=== PATIENT | male | born 1960 | race Caucasian/White ===

== ENCOUNTER 2016-12-31 10:04 | Inpatient (IN) | payer BC, OTHER ==
[2016-12-05 11:39] VITALS: BMI 33.0
--- NOTE | 2016-12-05 12:13 | PAT Medication Instructions ---
Service Date Dec 05, 2016. Current Home Medication List Amlodipine (Norvasc), 5 MG PO QAM Atorvastatin (Lipitor), 40 MG PO QAM Fish Oil (Hereford-3), 1 CAP PO QAM Emxdrcoefcx-Vzcqmqelcpu-Qpf C- (Glucosamine Chondroitin), 1 TAB PO QAM Multivitamin (Multivitamin), 1 TAB PO QAM Naproxen (Aleve), 440 MG PO prn Medication Instructions For Your Scheduled Surgery - Hold the following medications 2 weeks prior to surgery: Fish Oil (Hereford-3), 1 CAP PO QAM Lxfequfxhti-Arxqdetylmp-Tpf C- (Glucosamine Chondroitin), 1 TAB PO QAM - Hold the following medications the morning of surgery: Multivitamin (Multivitamin), 1 TAB PO QAM Naproxen (Aleve), 440 MG PO prn (otherwise okay per surgeon) - Take the following medications the morning of surgery with a sip of water OTHERWISE NOTHING TO EAT OR DRINK AFTER MIDNIGHT: Amlodipine (Norvasc), 5 MG PO QAM Atorvastatin (Lipitor), 40 MG PO QAM If you have any questions please call us at [phone] (Mandie Boothe PA-C ) or [phone] or [phone]
[2016-12-05 12:52] LABS: BASO % 0.4 %; BASO ABS # 0.03 K/uL (0-0.2); COMPLETE YES; EOS % 2.6 %; HEMATOCRIT 42.7 % (42-52); IG% 0.1 %; LYMPH ABS # 2.43 K/uL (1.2-3.4); MEAN CELL VOLUME 90.5 fL (80-100); MEAN CORPUSCULAR HEMOGLOBIN 30.5 pg (25-34); MEAN CORPUSCULAR HGB CONC 33.7 g/dl (32-36); MEAN PLATELET VOLUME 10.7 fL (7.4-10.4); MONO % 6.2 %; NEUT % 60.7 %; PLATELET COUNT 269 K/uL (130-400); RED BLOOD COUNT 4.72 M/uL (4.7-6.1)
[2016-12-05 12:57] LABS: URINE APPEARANCE CLEAR (CLEAR); URINE BILIRUBIN NEG (NEG); URINE COLOR YELLOW; URINE NITRITE NEG (NEG); UROBILINOGEN NEG (NEG); ZZUR CULT IF INDIC CLEAN CATCH NO
[2016-12-05 13:05] LABS: INR 0.9 (0.9-1.1); PROTHROMBIN TIME (PATIENT) 9.9 SECONDS (9.0-12.0)
[2016-12-05 13:06] LABS: MANUAL MICROSCOPIC REQUIRED? NO; REVIEW REQ? NO
--- NOTE | 2016-12-05 13:24 | DIAGNOSTIC IMAGING REPORT ---
CHEST PREADMISSION(PA/LAT) CLINICAL HISTORY: Preoperative evaluation. COMPARISON STUDY: No previous studies for comparison. FINDINGS: Lung volumes are normal. No pneumothorax or pleural effusions present. There is no consolidation. There is mild enlargement of the cardiac silhouette without evidence of pulmonary edema. IMPRESSION: 1. No acute cardiopulmonary findings. 2. Mild cardiomegaly. Electronically signed by: Patrick Armstrong M.D. 12/05/2016 1:22 PM Dictated Date/Time: 12/05/2016 1:21 PM
[2016-12-05 13:39] LABS: BUN/CREATININE RATIO 16.2 (10-20); CALCIUM 9.3 mg/dl (8.5-10.1); CREATININE 0.73 mg/dl (0.60-1.40)
--- NOTE | 2016-12-30 10:31 | HISTORY & PHYSICAL EXAMINATION ---
DATE OF ADMISSION: 12/31/2016 CHIEF COMPLAINT: Left hip pain. HISTORY OF PRESENT ILLNESS: Eladio is a 56-year-old male with a multiple-year history of pain in his left hip. The patient rates his pain a 10/10. He has pain with his daily activities. He has limited standing and walking tolerance. Pain is worse with weightbearing. The patient has had injections, anti-inflammatories, and home exercise program without relief. He has failed conservative treatment and is scheduled for left hip replacement. PAST MEDICAL HISTORY: Hypertension, hypercholesterolemia. He denies heart disease, diabetes or DVT. PAST SURGICAL HISTORY: Negative. SOCIAL HISTORY: The patient denies alcohol use. He smokes 3/4 of a pack of cigarettes per day. He lives in a 2-story home. He is and works in the [employer] business. FAMILY HISTORY: Negative for DVT. MEDICATIONS: Amlodipine 5 mg daily, tramadol 50 mg, atorvastatin 40 mg, fish oil 1200 mg, glucosamine chondroitin 1500 mg, Centrum Silver and Aleve p.r.n. ALLERGIES: None. REVIEW OF SYSTEMS: See HPI. Ten other systems reviewed, all negative. PHYSICAL EXAMINATION: VITAL SIGNS: Height 5-foot 10, weight 230 pounds, BMI is 33. GENERAL: This is a well-developed, well-nourished male who is alert and oriented x3. Mood and affect are appropriate. HEENT: Normocephalic, atraumatic. Mucous membranes are moist and intact. NECK: Supple without lymphadenopathy. HEART: Regular rate and rhythm without murmurs, rubs or gallops. LUNGS: Clear to auscultation without wheezes or rhonchi. ABDOMEN: Soft and nontender. Bowel sounds are equal and active. EXTREMITIES: No ecchymosis, redness or warmth. Thigh and calf are soft and nontender. He walks with an antalgic gait. Log roll of the hip reproduces pain in the groin. He is neurovascularly intact. Range of motion is decreased. X-RAY EXAMINATION: AP and lateral views show joint space narrowing and osteophyte formation of the left hip. PLAN: The patient will be admitted for a direct anterior left total hip arthroplasty. We will plan on aspirin for DVT prophylaxis. The patient's PCP is Dr. Sullivan in [place], [place].
[2016-12-31] VITALS (7 sets, daily range): BP systolic 94–138; BP diastolic 61–93; PULSE 76–97; TEMP 36.5–36.9; O2SAT 97–99; Ht 177.8 cm; Wt 105.6 kg
[~2016-12-31] VITALS: Ht 177.8 cm; Wt 105.6 kg
[~2016-12-31 10:04] MED LIST: ACETAMINOPHEN 500 MG TAB PO SCH; AMLO-110 PO; ATOR-24 PO; BUPIVACAINE 0.5 % 5 MG/1 ML PF 10ML VIAL ONE; CEFAZOLIN 2000 MG/60 ML D5W 60 ML IV SCH; CeleBREX 200 MG CAP PO SCH; DEXAMETHASONE 4 MG TAB PO SCH; FAMOTIDINE 20 MG TAB PO SCH; GABAPENTIN 300 MG CAP PO SCH; GLUC1CAP35 PO; LACTATED RINGER'S 1000ML IV SCH; METOCLOPRAMIDE HCL 10 MG TAB PO SCH; MULT-506 PO; NAPR1TAB9 PO; OMEG10007 PO; OXYCODONE HCL 10 MG TABCR (OXYCONTIN) PO SCH; POLYMYXIN B SULFATE 100,000 UNITS in NSS 100ML IR SCH; ROPIVACAINE 5MG/ML 30 ML 150 MG, BUPIVACAINE/EPINEPHR 0.5% MPF 30 ML, KETOROLAC TROMETH... INFIL SCH; VANCOMYCIN INJ 400 MG in NSS 100ML IR SCH
[2016-12-31] MEDS ORDERED: FENTANYL CITRATE INJ 50 MCG/1 ML 2 ML VIAL ONE (11:06)
[2016-12-31] MEDS ORDERED: PROPOFOL IV EMULSION 10 MG/ML 20 ML VIAL IV ONE ×2 (11:06→15:06)
[2016-12-31] MEDS ORDERED: LIDOCAINE HCL 2% 2 ML VIAL (20MG/ML) ONE (11:06)
[2016-12-31] MEDS ORDERED: MIDAZOLAM HCL 1 MG/ML 2ML VIAL ONE ×2 (11:06)
--- NOTE | 2016-12-31 12:05 | History & Physical Bridge Note ---
H&P Re-Evaluation Bridge Note: I have examined the patient, reviewed the History & Physical and in the interval since the performance of the History & Physical I have noted the following changes of clinical significance: No changes noted
[2016-12-31] MEDS: TRANEXAMIC ACID INJ 1,000 MG in SODIUM CHLORIDE 0.9% 100ML 100 ML IV SCH ×2 (12:20→17:29)
[2016-12-31] MEDS ORDERED: BACITRACIN 50000 UNIT VIAL ONE (13:12)
[2016-12-31] MEDS ORDERED: POVIDONE-IODINE OP SOLN 30 ML BTL ONE (13:12)
[2016-12-31] MEDS ORDERED: ORTHO JOINT ANESTHETIC ONE (13:12)
[2016-12-31] MEDS ORDERED: ATROPINE SULFATE 0.1 MG/ML 5ML SYR IV PRN (13:30)
[2016-12-31] MEDS ORDERED: ONDANSETRON INJ 2 MG/ML 2 ML VIAL IV PRN ×2 (13:30→15:00)
[2016-12-31] MEDS ORDERED: EpHEDrine SULFATE INJ 50 MG/ML AMP IV PRN (13:30)
[2016-12-31] MEDS ORDERED: KETOROLAC TROMETHAMINE 30 MG/ML VIAL IV. PRN (13:30)
[2016-12-31] MEDS ORDERED: HYDROmorphone INJ 2 MG/ML SYR/VIAL IV PRN (13:30)
[2016-12-31] MEDS ORDERED: PHENYLEPHRINE 100MCG/ML 5ML SYR IV PRN (13:30)
[2016-12-31] MEDS ORDERED: METOPROLOL TARTRATE 1 MG/ML VIAL ONE (14:38)
--- NOTE | 2016-12-31 14:58 | [facility] Post Operative Brief Note ---
Immediate Operative Summary Operative Date Dec 31, 2016. Pre-Operative Diagnosis Left Hip Degenerative Joint Disease Post-Operative Diagnosis Left Hip Degenerative Joint Disease Procedure(s) Performed Left Total Hip Arthroplasty, Direct Anterior Approach Surgeon Dr. Tramaine Ramos Tester Wafer Substrate Surgeon(s) Seferino Dennis PA-C Estimated Blood Loss 250 mL Findings DJD OBESE Specimens A: Left Femoral Head Complication(s) None Disposition Recovery Room / PACU
[2016-12-31] MEDS ORDERED: TRAMADOL HCL 50 MG TAB PO PRN (15:00)
[2016-12-31] MEDS ORDERED: MoRPHine SULFATE 2 MG/ML CARP IV PRN (15:00)
[2016-12-31] MEDS ORDERED: ALUMINUM/MAGNESIUM/SIMETH (MAALOX MAX) 30 ML UDC PO PRN (15:00)
[2016-12-31] MEDS ORDERED: MAGNESIUM HYDROXIDE SUSP 30 ML UDC PO PRN (15:00)
[2016-12-31] MEDS ORDERED: ZOLPIDEM TARTRATE 5 MG TAB PO PRN (15:00)
[2016-12-31] MEDS ORDERED: SOD PHOSPHATE/SOD BIPHOSPHATE ENEMA 132 ML BTL PR PRN (15:00)
[2016-12-31] MEDS ORDERED: DiphenhydrAMINE HCL 50 MG/ML VIAL IV PRN (15:00)
[2016-12-31] MEDS ORDERED: METOCLOPRAMIDE HCL INJ 5 MG/ML 2 ML VIAL IV PRN (15:00)
[2016-12-31] MEDS ORDERED: BISACODYL 10 MG SUPP PR PRN (15:00)
--- NOTE | 2016-12-31 15:05 | DIAGNOSTIC IMAGING REPORT ---
INTRAOPERATIVE FLUOROSCOPIC IMAGES OF THE LEFT HIP CLINICAL HISTORY: Total left hip arthroplasty COMPARISON STUDY: None FLUOROSCOPY TIME: 10 seconds. FINDINGS: A single AP fluoroscopic image demonstrates anatomic alignment of the left hip arthroplasty. No fracture is identified. The superior most aspect of the acetabular cup was not imaged on this exam. No unexpected radiopaque foreign body is identified. IMPRESSION: Expected findings during left hip arthroplasty. The superior most aspect of the acetabular cup was not imaged on this exam. Electronically signed by: Patrick Armstrong M.D. 12/31/2016 3:04 PM Dictated Date/Time: 12/31/2016 3:03 PM
--- NOTE | 2016-12-31 15:43 | Anesthesiology Progress Note ---
Anesthesia Post Op Note Date & Time Dec 31, 2016 at 15:42 Vital Signs Pain Intensity: 0 Vital Signs Past 12 Hours Date Time Temp Pulse Resp B/P Pulse Ox O2 Delivery O2 Flow Rate FiO2 12/31/16 15:30 36.1 90 16 147/85 98 Nasal Cannula 2 12/31/16 10:28 36.9 89 20 138/93 98 Room Air Notes Mental Status: alert / awake / arousable, participated in evaluation Pt Amnestic to Procedure: Yes Nausea / Vomiting: adequately controlled Pain: adequately controlled Airway Patency, RR, SpO2: stable & adequate BP & HR: stable & adequate Hydration State: stable & adequate Neuraxial Anesthesia: was administered, sensory block is resolving Anesthetic Complications: no major complications apparent
--- NOTE | 2016-12-31 15:52 | DIAGNOSTIC IMAGING REPORT ---
LEFT PELVIS/UNILATERAL HIP 1 VIEW CLINICAL HISTORY: Left hip arthroplasty. COMPARISON: Intraoperative fluoroscopic images performed earlier today. FINDINGS: Alignment of the total left hip arthroplasty is anatomic. There is no fracture or unexpected radiopaque foreign body. Acetabular screw is in place. There is a surgical drain. IMPRESSION: Expected findings following total left hip arthroplasty. Electronically signed by: Patrick Armstrong M.D. 12/31/2016 3:51 PM Dictated Date/Time: 12/31/2016 3:50 PM
[2016-12-31] MEDS: D5W AND 1/2NSS + 20MEQ KCL 1,000 ML IV SCH (18:09)
[2016-12-31] MEDS: OXYCODONE HCL IR 5 MG TAB (IMMEDIATE RELEASE) PO PRN ×2 (19:25→23:26)
[2016-12-31] MEDS ORDERED: INFLUENZA ADMINISTRATION CHARGE ONE (20:15)
[2016-12-31] MEDS ORDERED: INFLUENZA VIRUS QUAD VACCINE 0.5 ML SYR IM. ONE (20:15)
[2016-12-31] MEDS ORDERED: SENNA 8.6 MG TAB PO SCH (21:00)
[2016-12-31] MEDS ORDERED: TRANEXAMIC ACID INJ 1,000 MG in SODIUM CHLORIDE 0.9% 100ML 100 ML IV ONE (22:00)
[2016-12-31] MEDS: CEFAZOLIN IV 2,000 MG in DEXTROSE 5% 50ML 50 ML IV SCH (22:05)
[2016-12-31] MEDS: ASPIRIN 81 MG ECTAB PO SCH (22:05)
[2016-12-31] MEDS: KETOROLAC TROMETHAMINE 30 MG/ML VIAL IV. SCH (22:07)
[2016-12-31] MEDS: ACETAMINOPHEN 500 MG TAB PO SCH (22:07)
--- NOTE | 2017-01-01 00:43 | OPERATIVE REPORT ---
DATE OF OPERATION: 12/31/2016 PREOPERATIVE DIAGNOSIS: Degenerative arthritis, left hip. POSTOPERATIVE DIAGNOSIS: Same. PROCEDURE: Left total hip replacement. SURGEON: Dr. Ramos. PILLOW AGENT: AUGUSTINE Parmar. ANESTHESIA: Spinal. BLOOD LOSS: 250 mL. REPLACEMENT FLUIDS: 1800 mL of crystalloid. DRAINS: Hemovacs x1. CULTURES: None. COMPLICATIONS: None. COMPONENTS USED: [employer] Polar hip system, acetabulum size 52, femur size 3 lateral offset, femoral head +436 mm. NOTE: Seferino Dennis was present and assisted throughout due to the complicated nature of this case. He helped with preparation and set up, first assisted throughout and personally closed the fascial, subcutaneous and skin layers and applied the postoperative dressing. DESCRIPTION: Following satisfactory spinal, the patient was placed supine, the left hip was placed in the traction device and the right leg in the well leg valentin. The leg was prepared with ChloraPrep and draped sterilely. Following a surgical time-out, an anterior approach in the interval between the sartorius and tensor muscles was completed, the circumflex femoral vessels were identified and ligated. An anterior capsulotomy was performed. The approach was somewhat difficult as the patient had a very heavy subcutaneous fat layer with large 5 muscles and had a modest amount of oozing and bleeding. The anterior capsulotomy performed, the arthritic femoral neck and head were trimmed and removed. The acetabular self-retraining retractor was placed. Acetabular reaming was completed under fluoroscopic guidance and a 52 shell was impacted into an anatomic position and secured with a dome screw. After local anesthetic and irrigation, the polyethylene liner was placed. Attention was turned to the femur. The femur was prepared up to the size 3. A trial reduction with the +4 head showed the best jew of leg lengths using fluoroscopic anatomic landmarks and good fit and fill of the proximal canal. The trial component was removed after dislocating the hip, the wound was irrigated, local anesthetic was placed and the final implant was then placed and the hip reduced. Again, the position was confirmed. A Betadine soak was performed. After 5 minutes, the Betadine was irrigated. The capsule closed with 1 Vicryl interrupted. A drain was placed. The fascia was closed with 1-0 Vicryl running, the subcutaneous tissues with 1 Vicryl and 2-0 Vicryl and the skin with a running subcuticular stitch of 3-0 V-Loc. Dermabond and a dry dressing were applied. The patient was returned to his bed in stable condition. I attest to the content of the Intraoperative Record and any orders documented therein. Any exceptio ns are noted below.
[2017-01-01 03:10] VITALS: BP 133/73; PULSE 89; TEMP 36.9; O2SAT 96
[2017-01-01] MEDS: D5W AND 1/2NSS + 20MEQ KCL 1,000 ML IV SCH (04:11)
[2017-01-01] MEDS: KETOROLAC TROMETHAMINE 30 MG/ML VIAL IV. SCH ×2 (04:12→08:57)
[2017-01-01] MEDS: OXYCODONE HCL IR 5 MG TAB (IMMEDIATE RELEASE) PO PRN ×2 (04:16→09:09)
[2017-01-01] MEDS: CEFAZOLIN IV 2,000 MG in DEXTROSE 5% 50ML 50 ML IV SCH (05:44)
[2017-01-01] MEDS: ACETAMINOPHEN 500 MG TAB PO SCH (05:44)
[2017-01-01 07:28] VITALS: BP 121/74; PULSE 91; TEMP 37.1; O2SAT 96
[2017-01-01 07:44] LABS: BASO % 0.1 %; BASO ABS # 0.01 K/uL (0-0.2); COMPLETE YES; HEMATOCRIT 32.4 % (42-52); IG% 0.3 %; LYMPH % 6.1 %; MEAN CELL VOLUME 89.5 fL (80-100); MEAN CORPUSCULAR HEMOGLOBIN 29.8 pg (25-34); MEAN CORPUSCULAR HGB CONC 33.3 g/dl (32-36); MEAN PLATELET VOLUME 10.8 fL (7.4-10.4); MONO % 4.9 %; NEUT % 88.6 %; PLATELET COUNT 244 K/uL (130-400); RED BLOOD COUNT 3.62 M/uL (4.7-6.1); WHITE BLOOD COUNT 17.92 K/uL (4.8-10.8)
[2017-01-01 08:14] LABS: BUN/CREATININE RATIO 15.4 (10-20); CALCIUM 8.3 mg/dl (8.5-10.1); CREATININE 0.85 mg/dl (0.60-1.40); POTASSIUM 4.1 mmol/L (3.5-5.1)
--- NOTE | 2017-01-01 08:40 | Orthopedic Progress Note ---
Orthopedic Progress Note Date of Service Jan 01, 2017. Subjective Post OP Day: 1 Reports: feeling well, Denies: SOB, calf pain, chest pain, light headedness, nausea / vomiting Objective calves soft nontender, N/V intact, hip located, dressing C/D/I, A&O x3, toes mobile, hemovac drainage (175/75CC PER SHIFT) Date Time Temp Pulse Resp B/P Pulse Ox O2 Delivery O2 Flow Rate FiO2 01/01/17 07:28 37.1 91 18 121/74 96 Room Air 01/01/17 03:10 36.9 89 16 133/73 96 Room Air 12/31/16 23:20 Room Air 12/31/16 22:57 36.7 94 16 108/61 97 Room Air 12/31/16 19:45 36.6 97 18 94/64 98 Nasal Cannula 2.0 12/31/16 18:49 87 18 132/81 99 Nasal Cannula 2.0 12/31/16 18:06 36.5 87 18 131/84 99 2.0 12/31/16 17:18 36.5 87 16 122/71 99 Nasal Cannula 3.0 12/31/16 16:45 36.5 76 16 128/84 99 Nasal Cannula 2.0 12/31/16 16:45 99 Nasal Cannula 2.0 12/31/16 16:30 79 13 101/76 97 Nasal Cannula 2 12/31/16 16:15 76 17 129/78 97 Nasal Cannula 2 12/31/16 16:00 76 20 121/69 98 Nasal Cannula 2 12/31/16 15:50 36.0 72 16 127/76 99 Nasal Cannula 2 12/31/16 15:40 83 19 132/84 99 Nasal Cannula 2 12/31/16 15:30 36.1 90 16 147/85 98 Nasal Cannula 2 12/31/16 10:28 36.9 89 20 138/93 98 Room Air Laboratory Results 24 Hours: Test 01/01/17 07:02 White Blood Count 17.92 K/uL Red Blood Count 3.62 M/uL Hemoglobin 10.8 g/dL Hematocrit 32.4 % Mean Corpuscular Volume 89.5 fL Mean Corpuscular Hemoglobin 29.8 pg Mean Corpuscular Hemoglobin Concent 33.3 g/dl Platelet Count 244 K/uL Mean Platelet Volume 10.8 fL Neutrophils (%) (Auto) 88.6 % Lymphocytes (%) (Auto) 6.1 % Monocytes (%) (Auto) 4.9 % Eosinophils (%) (Auto) 0.0 % Basophils (%) (Auto) 0.1 % Neutrophils # (Auto) 15.89 K/uL Lymphocytes # (Auto) 1.10 K/uL Monocytes # (Auto) 0.87 K/uL Eosinophils # (Auto) 0.00 K/uL Basophils # (Auto) 0.01 K/uL Assessment & Plan Assessment: POD#1 SP LEFT TIMA Inhouse Planning Pain Management: Celebrex, PO Tylenol, Oxy IR DVT Prophylaxis: TEDs, SCDs, ASA Discharge Planning Discharge Planning: home (DC HOME TODAY)
--- NOTE | 2017-01-01 08:41 | Discharge Instructions ---
Discharge Instructions Admission Reason for Admission: Left Hip Degenerative Arthritis Discharge Discharge Diagnosis / Problem: SP LEFT TIMA, DA Discharge Goals Goal(s): Decrease discomfort, Improve function, Increase independence Activity Recommendations Activity Limitations: per Instructions/Follow-up section . Instructions / Follow-Up Instructions / Follow-Up ACTIVITY RECOMMENDATIONS: SELF CARE INSTRUCTIONS AFTER TOTAL HIP REPLACEMENT : Direct Anterior Approach Until the incision and soft tissues around your hip have healed, there is a possibility that the hip prosthesis could dislocate. A. Hip flexion ( Up & Down out of chair or steps ) may be difficult. This is normal. B. Numbness in front of the thigh is also normal for a few weeks. C. Use hand rails when walking on stairs. D. Wear low heeled shoes with non-slip soles. E. Be sure that your floors are free of things that could trip you - throw rugs , electrical cords, small objects. Avoid wet and waxed floors, especially with crutches and canes. F. Try to walk several times a day with rest periods between. G. Continue with all the exercises taught to you in the hospital. Again, make walking a part of your daily routine. SPECIAL CARE INSTRUCTIONS: VERY IMPORTANT TO READ AND REVIEW A. You may still be at risk for phlebitis and blood clots. 1. Wear surgical stockings (DRAKE hose) for 2 weeks after surgery to improve circulation and reduce swelling. 2. Take Aspirin 81mg twice daily for 4 weeks or as directed by your doctor. This is your blood thinner. 3. High risk patients may be prescribed a stronger blood thinner if necessary. 4. If you are on Coumadin normally, your family doctor/electric locomotive crane operator should monitor your blood work. Expect a phone call the day of or the day after bloodwork is drawn to adjust your dosage. B. You must take antibiotics before having dental work, bladder, bowel and other surgery. Your doctor will provide you with a permanent card to carry describing precautions. C. Call [facility] if you have a fever, redness or swelling around the incision, cloudy drainage from incision, or sudden increase in pain in your hip, not relieved by your regular pain medication. D. Please call the office at if you have any concerns or questions about your operation or recovery. * YOU MAY SHOWER, NO TUB BATHS UNTIL CLEARED BY YOUR DOCTOR. - Keep an extra close eye on the top portion of your incision. Be sure to keep clean & dry. * WEAR DRAKE HOSE 20 HOURS PER DAY FOR 2 WEEKS. * YOU MAY PROGRESS FROM A WALKER, TO A CANE, TO INDEPENDENT AT YOUR OWN PACE. * MOST PATIENTS WILL HAVE HOME NURSING FOR THERAPY. IF YOU DECIDE TO DO OUTPATIENT PHYSICAL THERAPY, PLEASE SCHEDULE THIS 3 TIMES PER WEEK. * DERMABOND Prineo- This is a mesh tape dressing that is covered with glue. It should remain in place until the incision is properly healed, usually 10-14 days. This dressing is designed to naturally slough off. You may trim the excess mesh tape as it peels off. Incision may be briefly wet in a shower. Dry immediately by blotting with a clean, dry towel. Do not bath or swim until instructed by your doctor. Do not scratch, rub, or pick at the dressing. Do not apply any topical ointments or lotions until dressing is completely removed and/or instructed by your doctor. There may be a small piece of suture material at one end of your incision. Do not pull or trim this. If it is bothersome or catching on clothing, you may cover it with a band-aid. FOLLOW UP VISIT: If appointment is not already scheduled: Please call [facility] to make a follow-up appointment for 2 weeks after your surgery at . Current Hospital Diet Patient's current hospital diet: Regular Diet Discharge Diet Recommended Diet: Regular Diet Procedures Procedures Performed: Left Total Hip Arthroplasty, Direct Anterior Approach Pending Studies Studies pending at discharge: no Medical Emergencies . Who to Call and When: Medical Emergencies: If at any time you feel your situation is an emergency, please call 911 immediately. . Non-Emergent Contact Non-Emergency issues call your: Primary Care Provider . "Provider Documentation" section prepared by Graciela Cerda. VTE Core Measure Inpt VTE Proph given/why not?: Other Anticoagulation, T.E.D. Stockings, SCD's
[2017-01-01] MEDS ORDERED: ASPEC81 PO (08:42)
[2017-01-01] MEDS ORDERED: CLB200 PO (08:42)
[2017-01-01] MEDS ORDERED: SNK PO (08:42)
[2017-01-01] MEDS ORDERED: ONDA8TAB6 PO (08:42)
[2017-01-01] MEDS ORDERED: RXC5 PO (08:42)
[2017-01-01] MEDS ORDERED: ACET-1138 PO (08:42)
[2017-01-01] MEDS: ASPIRIN 81 MG ECTAB PO SCH (08:57)
[2017-01-01] MEDS ORDERED: PANTOprazole SOD 40 MG TAB PO SCH (09:00)
[2017-01-01] MEDS ORDERED: MULTIVITAMIN TAB PO SCH (09:00)
[2017-01-01] MEDS ORDERED: AMLODIPINE BESYLATE 5 MG TAB PO SCH (09:00)
[2017-01-01] MEDS ORDERED: ATORVASTATIN 40 MG TAB PO SCH (09:00)
[2017-01-01 11:11] VITALS: BP 121/74; PULSE 91; TEMP 37.1; O2SAT 96
[2017-01-01 11:27] VITALS: BP 133/77; PULSE 90; TEMP 36.9; O2SAT 99
--- NOTE | 2017-01-01 11:52 | DISCHARGE SUMMARY ---
DISCHARGE DIAGNOSIS: Degenerative joint disease, left hip. SECONDARY DIAGNOSES: Hypertension, hypercholesterolemia. CONSULTS: None. COMPLICATIONS: None. PROCEDURE: Left total hip arthroplasty, direct anterior, performed by Dr. Tramaine Ramos on 12/31/2016. BRIEF HISTORY: As dictated in history and physical. HOSPITAL SUMMARY: The patient was admitted on the above-noted date and had the above-noted surgery performed which he tolerated well. On the first postoperative day, he was feeling well and had no complaints. Calves were soft and nontender. Neurovascularly intact. Hip was located. Dressings clean, dry and intact. Toes were mobile. Vital signs were stable. He was afebrile. Hemoglobin was 10.8 and he was started on physical therapy protocol and continued on DVT prophylaxis and pain management. He was progressing well with his physical therapy, remaining stable and it was felt that he could be discharged to home. For further review, please see chart. LAB AND X-RAY DATA: As per chart. DISCHARGE INSTRUCTIONS: The patient was discharged to home in satisfactory condition on 01/01/2017. DIET: Regular. ACTIVITY: Follow TIMA instruction sheets and special care instructions as noted. Follow up with Dr. Tramaine Ramos in 2 weeks. The patient to call for appointment if one has not been made for you. DISCHARGE MEDICATIONS: Acetaminophen 1000 mg p.o. q. 8 hours, aspirin 81 mg p.o. b.i.d., Celebrex 200 mg p.o. b.i.d., Zofran 8 mg p.o. q. 8 hours p.r.n. nausea, oxycodone 5-10 mg p.o. q. 4 hours p.r.n., senna 17.2 mg p.o. at bedtime. Resume taking amlodipine 5 mg p.o. q.a.m., atorvastatin 40 mg p.o. q.a.m., fish oil caplet 1 caplet p.o. q.a.m., glucosamine chondroitin 1 cap p.o. daily and multivitamin 1 tab p.o. q.a.m.
[2017-01-03] MEDS ORDERED: CeleBREX 200 MG CAP PO SCH (09:00)
[2017-01-10] MEDS ORDERED: LACTATED RINGER'S 1000ML 1,000 ML IV SCH (06:00)
[2017-01-10] MEDS ORDERED: LACTATED RINGER'S 1000ML 500 ML IV ONE (06:00)
== END 2017-01-01 12:33 | disposition home or self-care (01) | DRG 470 ==
LOC: ENRESERVDT → ENRESERVTM → C.ACU 10:04 → C.MSW 10:15
PROVIDERS: ADMIT Orthopaedic Surgery; ATTEND Orthopaedic Surgery
PROC: 0SRB0JZ Replacement of Left Hip Joint with Synthetic Substitute, Open Approach (ICD-10-PCS; principal; 2016-12-31 11:45)
DX: M16.12 Unilateral primary osteoarthritis, left hip (principal); I10 Essential (primary) hypertension; E78.00 Pure hypercholesterolemia, unspecified; F17.210 Nicotine dependence, cigarettes, uncomplicated; E66.9 Obesity, unspecified; Z68.33 Body mass index [BMI] 33.0-33.9, adult; Z79.891 Long term (current) use of opiate analgesic; Z79.899 Other long term (current) drug therapy